=== PATIENT | male | born 1970 | race Caucasian/White ===

== ENCOUNTER 2020-02-16 | Emergency (ER) | payer MEDICARE ==
[2020-02-16] MEDS ORDERED: BUSPAR5 MG PO (12:27)
[2020-02-16] MEDS ORDERED: TYLENOL500 MG PO (12:28)
[2020-02-16] MEDS ORDERED: CVS IBUPROFEN200 M3 PO (12:28)
[2020-02-16] MEDS ORDERED: PRILOSEC OTC20 MG PO (12:29)
[2020-02-16 12:52] LABS: HEMATOCRIT 45.3 % (39.0-50.0); HEMOGLOBIN 15.5 g/dl (14.0-18.0); IMMATURE GRANULOCYTES 0.4 % (0.0-5.0); MEAN CORPUSCULAR HGB 31.8 pG CALC (26.0-32.0); MEAN CORPUSCULAR HGB CONC 34.2 g/dL CAL (32.0-36.0); NEUT# 5.63 thou/uL (1.82-7.42); RED BLOOD COUNT 4.87 mill/uL (4.70-6.10); RED CELL DISTRI WIDTH 12.7 % (11.5-15.5)
[2020-02-16 13:10] LABS: ALBUMIN 4.7 g/dL (3.2-5.0); ALKALINE PHOSPHATASE 72 u/l (38-126); AMYLASE 46 u/l (30-110); ANION GAP 16 (6-22 (CALC)); BILIRUBIN, TOTAL 0.7 mg/dL (0.0-1.4); BUN 12 mg/dL (9-20); BUN/CREATININE RATIO 14 (12-20 (CALC)); CARBON DIOXIDE 23 mmol/l (22-30); CHLORIDE 102 mmol/l (95-108); CREATININE 0.9 mg/dL (0.7-1.3); GFR > 60 ML/MIN (>=60 (CALC)); GFR FOR AFR.AMER. > 60 ML/MIN (>=60 (CALC)); LIPASE 37 u/l (23-300); POTASSIUM 4.3 mmol/l (3.5-5.1); SGOT/AST 35 u/l (17-59); SODIUM 136 mmol/l (137-146); TOTAL PROTEIN 8.1 g/dL (6.3-8.2)
[2020-02-16 13:15] LABS: ACT PARTIAL THROMBO TIME 28.8 SECONDS (20.0-32.5); D-DIMER 0.41 mg/L (0.19-0.60); INTERNATIONAL NORMALIZED RATIO 0.9 RATIO (0.7-1.3); PROTHROMBIN TIME 9.7 SECONDS (9.0-12.5)
[2020-02-16 13:22] LABS: MYOGLOBIN 44 ng/mL (0 - 121)
[2020-02-16] MEDS ORDERED: AUGMENTIN500TAB PO (16:03)
--- NOTE | 2020-02-18 11:27 | NUR ---
Notified patient of Covid results (Negative). Advised patient to follow up with PCP or return to ED with urgent needs. Advised patient to continue practicing Covid prevention. Patient verbalized understanding.
== END 2020-02-16 16:15 | disposition home or self-care (01) ==
PROVIDERS: Emergency Medicine
DX: J18.9 Pneumonia, unspecified organism (principal); R09.1 Pleurisy; Z20.828 Contact with and (suspected) exposure to other viral communicable diseases
CPT/HCPCS: Q9967

== ENCOUNTER 2020-08-25 20:05 | Emergency (ER) | payer MEDICARE ==
[~2020-08-25] VITALS: Ht 177.8 cm; Wt 104.0 kg
[~2020-08-25 20:05] MED LIST: AUGMENTIN500TAB PO; BUSPAR5 MG PO; CVS IBUPROFEN200 M3 PO; PRILOSEC OTC20 MG PO; TYLENOL500 MG PO
[2020-08-25] MEDS ORDERED: [UNRECOGNIZED DRUG - OTHER] (20:33)
[2020-08-25 21:35] LABS: HEMOGLOBIN 14.8 g/dl (14.0-18.0); IMMATURE GRANULOCYTES 0.5 % (0.0-5.0); MEAN CELL VOLUME 95.4 fL CALC (80.0-100.0); MEAN CORPUSCULAR HGB 32.1 pG CALC (26.0-32.0); MEAN CORPUSCULAR HGB CONC 33.6 g/dL CAL (32.0-36.0); NEUT# 10.99 thou/uL (1.82-7.42); RED BLOOD COUNT 4.61 mill/uL (4.70-6.10); RED CELL DISTRI WIDTH 12.7 % (11.5-15.5)
[2020-08-25 21:44] LABS: ALBUMIN 4.4 g/dL (3.2-5.0); ALKALINE PHOSPHATASE 78 u/l (38-126); ANION GAP 12 (6-22 (CALC)); BUN 11 mg/dL (9-20); BUN/CREATININE RATIO 12 (12-20 (CALC)); CARBON DIOXIDE 27 mmol/l (22-30); CHLORIDE 103 mmol/l (95-108); CREATININE 0.9 mg/dL (0.7-1.3); GFR > 60 ML/MIN (>=60 (CALC)); GFR FOR AFR.AMER. > 60 ML/MIN (>=60 (CALC)); POTASSIUM 3.9 mmol/l (3.5-5.1); SGOT/AST 26 u/l (17-59); SODIUM 139 mmol/l (137-146); TOTAL PROTEIN 7.7 g/dL (6.3-8.2)
[2020-08-25 21:46] LABS: D-DIMER 0.67 mg/L (0.19-0.60)
[2020-08-25 21:48] LABS: BILIRUBIN, TOTAL 0.3 mg/dL (0.0-1.4)
[2020-08-25 21:51] LABS: ACT PARTIAL THROMBO TIME 25.4 SECONDS (20.0-32.5); PROTHROMBIN TIME 9.6 SECONDS (9.0-12.5)
[2020-08-25 21:56] LABS: MYOGLOBIN 41 ng/mL (0 - 121)
--- NOTE | 2020-08-25 22:05 | NUR ---
BREATHING TREATMENT GIVEN.
[2020-08-25] MEDS ORDERED: LEVAQUIN750 M1 PO (22:34)
[2020-08-25] MEDS ORDERED: TORADOL PO (22:34)
[2020-08-25 22:50] VITALS: BP 108/56
== END 2020-08-25 22:58 | disposition home or self-care (01) ==
LOC: ED 20:05
PROVIDERS: Family Medicine
DX: J18.9 Pneumonia, unspecified organism (principal); F17.200 Nicotine dependence, unspecified, uncomplicated; Z20.828 Contact with and (suspected) exposure to other viral communicable diseases

== ENCOUNTER 2021-02-02 11:57 | Emergency (ER) | payer MEDICARE ==
[~2021-02-02 11:57] MED LIST changes: +LEVAQUIN750 M1 PO; +TORADOL PO; +[UNRECOGNIZED DRUG - OTHER]
[2021-02-02] MEDS ORDERED: KEFLEX500 MG PO (12:58)
[2021-02-02 13:48] VITALS: BP 133/87
== END 2021-02-02 13:48 | disposition home or self-care (01) ==
LOC: ED 11:57
DX: L02.411 Cutaneous abscess of right axilla (principal); F17.200 Nicotine dependence, unspecified, uncomplicated